=== PATIENT | female | born 1990 | race Caucasian/White ===

== ENCOUNTER 2024-07-24 15:10 | Emergency (ER) | payer BC, MEDICAID, OTHER ==
[~2024-07-24] VITALS: Ht 144.8 cm; Wt 147.0 kg
[2024-07-24 15:19] VITALS: BP 160/97; TEMP 97
[2024-07-24 21:28] VITALS: PULSE 60; RESP 16; O2SAT 98
== END 2024-07-24 21:32 | disposition home or self-care (01) ==
LOC: ER 15:10
DX: Z00.8 Encounter for other general examination (principal); T76.21XA Adult sexual abuse, suspected, initial encounter; Y08.89XA Assault by other specified means, initial encounter; Y93.89 Activity, other specified; Y92.89 Other specified places as the place of occurrence of the external cause; Y99.8 Other external cause status
CPT/HCPCS: 99284

== ENCOUNTER 2024-11-15 18:45 | Emergency (ER) | payer MEDICAID, OTHER ==
[~2024-11-15] VITALS: Ht 142.2 cm; Wt 113.0 kg
[2024-11-15 18:54] VITALS: BP 105/86; PULSE 65; RESP 16; O2SAT 99
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
--- NOTE | 2024-11-15 20:18 | RADIOLOGY REPORT ---
FRONTAL CHEST AND RIGHT RIB RADIOGRAPHS HISTORY: right lower rib pain TECHNIQUE: Multiple views of the right ribs with frontal view of the chest. COMPARISON: None FINDINGS: The trachea is midline. The cardiac silhouette and mediastinum are within normal limits. Low lung volumes with bronchovascular crowding. No pneumothorax, pleural effusions, or consolidations. There is no evidence of an acute fracture, dislocation, blastic, or lytic lesions. No radiopaque foreign bodies. No superficial soft tissue abnormalities. Impression: 1. No evidence of an acute rib fracture. 2. No acute cardiopulmonary disease.
[2024-11-15] MEDS ORDERED: LIDO700A47 TOP (20:42)
[2024-11-15 20:52] VITALS: TEMP 98.2
== END 2024-11-15 21:15 | disposition home or self-care (01) ==
LOC: ER 18:45
DX: S20.211A Contusion of right front wall of thorax, initial encounter (principal); Z90.89 Acquired absence of other organs; Z88.8 Allergy status to other drugs, medicaments and biological substances; X58.XXXA Exposure to other specified factors, initial encounter; Y93.89 Activity, other specified; Y92.89 Other specified places as the place of occurrence of the external cause; Y99.8 Other external cause status
CPT/HCPCS: 71101; 99283